=== PATIENT | female | born 1975 | race Caucasian/White ===

== ENCOUNTER 2020-11-01 20:55 | Emergency (ER) | payer OTHER ==
[~2020-11-01 20:55] MED LIST: AMBIEN5 MG PO; CHANTIX1 MG PO; COZAAR100 MG PO; FLONASE 0.05% N16 GM; LEVAQUIN750 MG PO; LEXAPRO10 MG PO; LODINE CAP 300300 MG PO; NEURONTIN 400400 MG PO; NORFLEX 100 MG100 MG PO; PREDNISONE50 MG PO; PROZAC20 MG PO; SEROQUEL50 MG PO; TRAZODONE HCL100 MG PO; TRILEPTAL150 MG PO; VENTOLIN HFA 66.7 GM INH; ZESTRIL40 MG PO; ZYPREXA5 MG PO
[2020-11-01 21:26] LABS: RED BLOOD COUNT 4.71 M/UL (4.00-5.10); WHITE BLOOD COUNT 14.7 K/UL (4.5-11.0)
[2020-11-01 21:57] LABS: BUN/CREATININE RATIO 17 (0-10)
== END 2020-11-02 02:24 | disposition short-term general hospital (02) ==
LOC: ER1 20:55
PROVIDERS: Emergency Medicine; Physician Assistant
DX: R56.9 Unspecified convulsions (principal); S01.512A Laceration without foreign body of oral cavity, initial encounter; I10 Essential (primary) hypertension; Z20.822 Contact with and (suspected) exposure to COVID-19; F17.210 Nicotine dependence, cigarettes, uncomplicated; X58.XXXA Exposure to other specified factors, initial encounter
CPT/HCPCS: 70450; 71045; 80053; 80307; 81001; 82550; 82553; 83735; 83874; 84100; 84484; 84703; 85025; 87086; 93005; 99285; G0480; J1953; J2060; U0002

== ENCOUNTER → 2021-04-02 | Outpatient (CLI) | payer OTHER | LOC: KOH-I 11:47 | DX: R06.89 Other abnormalities of breathing (principal); R09.02 Hypoxemia | CPT/HCPCS: 71046 ==

== ENCOUNTER 2022-01-31 16:20 | Emergency (ER) | payer OTHER ==
[2022-01-31] MEDS ORDERED: KEPPRA500 MG PO ×3 (17:58→18:06)
== END 2022-01-31 18:02 | disposition home or self-care (01) ==
LOC: ER1 16:20
DX: G40.409 Other generalized epilepsy and epileptic syndromes, not intractable, without status epilepticus (principal)
CPT/HCPCS: 93005; 99284; J2060

== ENCOUNTER 2022-02-27 22:37 | Emergency (ER) | payer OTHER ==
[~2022-02-27 22:37] MED LIST changes: +KEPPRA500 MG PO
[2022-02-27 23:31] LABS: HEMOGLOBIN 13.6 gm/dl (12.3-15.3); RED BLOOD COUNT 4.73 M/UL (4.00-5.10); WHITE BLOOD COUNT 15.9 K/UL (4.5-11.0)
[2022-02-27 23:54] LABS: BUN/CREATININE RATIO 18 (0-10)
== END 2022-02-27 23:50 | disposition left against medical advice (07) ==
LOC: ER1 22:37
PROVIDERS: Family Medicine
DX: Z03.89 Encounter for observation for other suspected diseases and conditions ruled out (principal)
CPT/HCPCS: 80053; 80307; 85025; 99281; G0480